=== PATIENT | female | born 1990 | race Caucasian/White ===

== ENCOUNTER 2023-04-19 13:26 | Emergency (ER) | payer OTHER, SELFPAY ==
[2023-04-19] VITALS (17 sets, daily range): BP systolic 113–177; BP diastolic 53–78; PULSE 107–126; RESP 14–21; TEMP 36.8–38.1; O2SAT 97–100; BMI 20.5
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
[2023-04-19 14:13] LABS: Add Manual Diff / Slide Review NO; Basophils Absolute Auto 0 /uL (0-100); Basophils Percent Auto 0.2 % (0-2); Eosinophils Absolute Auto 0 /uL (0-450); Hematocrit 37.1 % (36-46); Hemoglobin 12.5 g/dL (12.0-16.0); Lymphocytes Absolute Auto 1000 /uL (1100-4500); Lymphocytes Percent Auto 6.2 % (25-40); Mean Corpuscular HGB Conc 33.7 % (30-36); Mean Corpuscular Hemoglobin 31.8 PG (26-34); Mean Corpuscular Volume 94.2 fL (80-100); Monocytes Absolute Auto 1800 /uL (0-900); Monocytes Percent Auto 10.9 % (3-14); Neutrophils Absolute Auto 13500 /uL (1500-7000); Neutrophils Percent Auto 82.7 % (50-75); Platelet Count 284 X10^3/uL (150-400); Red Blood Cell Count 3.93 X10^6/uL (4.0-5.2); Red Cell Distribution Width 13.4 % (11.6-14.8); White Blood Cell Count 16.3 X10^3/uL (4.5-11.0)
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
[2023-04-19 14:15] LABS: INR 1.4 (0.9-1.3); Prothrombin Time 16.3 SECONDS (9.4-12.5)
[2023-04-19 14:17] LABS: PTT Partial Thromboplastin Tim 37 SECONDS (25.1-36.5)
[2023-04-19 14:18] LABS: Lactate (Lactic Acid) 1.3 mmol/L (0.7-2.1)
[2023-04-19 14:20] LABS: Alanine Aminotransferase 20 IU/L (<35); Albumin 3.5 g/dL (3.5-5.0); Albumin Globulin Ratio 1.1 (1.0-2.8); Alkaline Phosphatase 109 U/L (38-126); Aspartate Aminotransferase 28 IU/L (14-36); BUN Creatinine Ratio 19.6 (6-22); Bilirubin Total 0.8 mg/dL (0.2-1.3); Blood Urea Nitrogen 10 mg/dL (7-17); Calcium 8.3 mg/dL (8.4-10.2); Carbon Dioxide 26 mmol/L (22-32); Chloride 100 mmol/L (98-107); Estimated Glomerular Filt Rate > 60 mL/min (>60); Ethanol (ETOH) < 10 mg/dL; Globulin 3.3 g/dL (1.7-4.1); Glucose 115 mg/dL (70-100); HEMOLYSIS 41 (0-50); Potassium 3.4 mmol/L (3.4-5.1); Sodium 131 mmol/L (137-145); Total Protein 6.8 g/dL (6.3-8.2)
[2023-04-19 14:21] LABS: Lipase < 10 U/L (23-300)
--- NOTE | 2023-04-19 14:35 | PC.NURSE ---
Of note, Pt seen 04/[address] [facility] Saturday for left knee pain. Records requested.
[2023-04-19] MEDS: KETOROLAC 30 MG/ML VIAL 15 MG IV (14:58)
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
[2023-04-19] MEDS: SODIUM CHLORIDE 0.9% 1,000 ML 1000 ML IV (15:24)
[2023-04-19 15:58] LABS: Procalcitonin 0.68 ng/mL (<0.5)
[2023-04-19 16:15] LABS: UR Morphine/Opiate cutoff 300 Negative (Negative); Ur Creatinine Normal (Normal); Ur Specific Gravity Normal (Normal); Urine Amphetamines Negative (Negative); Urine Barbiturates Negative (Negative); Urine Benzodiazepines Negative (Negative); Urine Cocaine Negative (Negative); Urine MDMA Negative (Negative); Urine Methadone Negative (Negative); Urine Methamphetamines Positive (Negative); Urine Oxycodone Negative (Negative); Urine Phencyclidine Negative (Negative); Urine Tetrahydrocannabinol Negative (Negative); Urine Tricyclic Antidepressant Negative (Negative); Urine pH Normal (Normal)
[2023-04-19] MEDS: cefTRIAXone 1,000 MG in SODIUM CHLORIDE 0.9% 100 ML 200 MG IV (17:10)
[2023-04-19 17:14] LABS: Influenza A - CEPHEID Flu A NEGATIVE (NEGATIVE); Influenza B - CEPHEID Flu B NEGATIVE (NEGATIVE); Respiratory Syncytial Virus Negative (Negative)
[2023-04-19 17:17] LABS: COVID-19 CEPHEID 4-PLEX PCR Negative (Negative)
--- NOTE | 2023-04-19 17:23 | DI.CT.S_ITS ---
PROCEDURE: CT ABDOMEN PELVIS W CON INDICATIONS: fever TECHNIQUE: After the administration of IV contrast, axial sections were acquired from the lung bases to the pubic symphysis. Coronal and sagittal reformats were performed. For radiation dose reduction, the following was used: automated exposure control, adjustment of mA and/or kV according to patient size. COMPARISON: None. FINDINGS: Image quality: Good. Lung bases: Unremarkable. Heart: No significant findings. ABDOMEN: Liver: No solid mass. Gallbladder: No radiopaque gallstones or wall thickening. Biliary ducts: No biliary dilation. Pancreas: No ductal dilation. Spleen: Size is within normal limits. Adrenal Glands: No adrenal nodules. Kidneys and Ureters: No hydronephrosis. No solid mass. No complex renal cystic lesion which requires follow up. Stomach and Bowel: Stomach is within normal limits. There is fluid within the small bowel. No small bowel obstruction. Somewhat prominent stool in the distal colon. The appendix is not identified. Peritoneum: No abnormal intraperitoneal fluid. No free air. Ventral Wall: No hernia. Abdominal Nodes: No retroperitoneal or mesenteric adenopathy by size criteria. Vessels: Aorta and inferior vena cava are normal in size. PELVIS: Pelvic Organs: Anteverted uterus. Bladder: No stone. Pelvic Nodes: No enlarged lymph nodes. Miscellaneous: No inguinal hernias are seen. Bones: No suspicious osseous lesion. IMPRESSION: 1. Fluid within the small bowel. This could represent an enteritis. 2. No small bowel obstruction. No free fluid. 3. The appendix is not identified. 4. No fracture. Dictated by: Sarmad Krueger M.D. on 04/19/2023 at 19:06 Approved by: Sarmad Krueger M.D. on 04/19/2023 at 19:12
[2023-04-19 17:38] LABS: Urine N gonorrhoeae NOT DETECTED
[2023-04-19 17:39] LABS: Urine Chlamydia NOT DETECTED
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
[2023-04-19] MEDS: KETOROLAC 30 MG/ML VIAL IM (19:39)
== END 2023-04-19 19:52 | disposition home or self-care (01) ==
PROVIDERS: Emergency Provider Emergency Medicine
DX: S83.92XA Sprain of unspecified site of left knee, initial encounter (principal); J06.9 Acute upper respiratory infection, unspecified; R50.9 Fever, unspecified; R00.0 Tachycardia, unspecified; Z20.822 Contact with and (suspected) exposure to COVID-19; Y04.2XXA Assault by strike against or bumped into by another person, initial encounter
CPT/HCPCS: 0241U; 36415; 71045; 73552; 73562; 74177; 80053; 80305; 80320; 81003; 81025; 83605; 83690; 84145; 85025; 85610; 85730; 86850; 86900; 86901; 87040; 87491; 87591; 96361; 96365; 96372; 96375; 99284; 99285; J0696; J1885; Q9967

== ENCOUNTER → 2024-02-25 14:34 | Outpatient (CLI) | payer OTHER, SELFPAY ==
[2024-02-25 15:34] LABS: Add Manual Diff / Slide Review NO; Basophils Absolute Auto 0 /uL (0-100); Basophils Percent Auto 0.2 % (0-2); Eosinophils Absolute Auto 100 /uL (0-450); Hematocrit 37.3 % (36-46); Hemoglobin 12.7 g/dL (12.0-16.0); Lymphocytes Absolute Auto 1300 /uL (1100-4500); Lymphocytes Percent Auto 18.1 % (25-40); Mean Corpuscular HGB Conc 34.1 % (30-36); Mean Corpuscular Hemoglobin 33.4 PG (26-34); Monocytes Absolute Auto 500 /uL (0-900); Monocytes Percent Auto 7.3 % (3-14); Neutrophils Absolute Auto 5400 /uL (1500-7000); Neutrophils Percent Auto 73.4 % (50-75); Platelet Count 336 X10^3/uL (150-400); Red Blood Cell Count 3.81 X10^6/uL (4.0-5.2); White Blood Cell Count 7.4 X10^3/uL (4.5-11.0)
[2024-02-25 15:41] LABS: Natera Collection Specimen Collected
[2024-02-26 04:40] LABS: RPR Screen Non Reactive (Non Reactive)
[2024-02-26 08:36] LABS: Varicella IgG Antibody Reactive (Non Reactive)
[2024-02-26 16:11] LABS: Hepatitis B Surface Antigen NEGATIVE s/c (NEGATIVE); Rubella Antibody IgG 19.2 IU/mL (>15)
[2024-02-26 16:28] LABS: HIV 1 & 2 Ab/Ag 4th Gen Combo NEGATIVE (NEGATIVE); Hep C Virus Ab w/Reflex Quant REACTIVE s/c (NEGATIVE)
== END ==
LOC: LAB 14:35
PROVIDERS: Referring Provider Family Medicine; Visit Provider Family Medicine
DX: O09.299 Supervision of pregnancy with other poor reproductive or obstetric history, unspecified trimester (principal)
CPT/HCPCS: 36415; 80055; 86787; 86803; 86850; 86900; 86901; 87389; 87522

== ENCOUNTER → 2024-05-28 13:05 | Outpatient (CLI) | payer OTHER, SELFPAY ==
--- NOTE | 2024-05-28 13:06 | DI.US.S_ITS ---
PROCEDURE: US OB >= 14 WEEKS FETUS INDICATIONS: Anatomy Scan OUTSIDE/PRIOR DATING DATA: Last menstrual period (LMP): 11/12/2023 LMP-based estimated date of delivery (AINSLEY): 08/18/2024 The calculations are made using the clinical AINSLEY of 08/18/2024. TECHNIQUE: Real-time scanning was performed of the fetus, with image documentation and biometric measurements. Endovaginal scanning: Not performed. COMPARISON: None. FINDINGS: General: A single living intrauterine gestation is present. Presentation: Cephalic Placenta: Placental position is posterior, without previa. Amniotic fluid index: 15.6 cm, normal range is 5-24 cm. Single deepest vertical pocket is 4.3 cm. heart rate: 137 beats per minute. Maternal cervical canal: 3.5 cm long. Normal lower limit is 2.5 cm. biometrics: Biparietal diameter: 7.3 cm, 29 weeks 1 day Head circumference: 26.6 cm, 29 weeks 0 days Abdominal circumference: 23.8 cm, 28 weeks 1 day Femur length: 5.0 cm, 26 weeks 5 days Clinically estimated gestational age: 28 weeks 2 days Composite gestational age from present scan: 28 weeks 2 days Estimated weight and percentile: 1124 g, 20th percentile Anatomic survey: Neuro: Ventricles are non-dilated at less than 10 mm. Cisterna magna is normal at 3-11 mm. Cerebellum is normal in size and morphology. Nuchal skin fold: Not evaluated due to gestational age. Face: Nose and lips, facial profile are normal. Spine: No evidence for spina bifida. Heart: 4-chambered heart is present, with normal ventricular outflow tracts. Diaphragm: Diaphragm is intact. Stomach: Left-sided stomach is present. Kidneys: No hydronephrosis. Normal is less than 5 mm in 2nd trimester, less than 7 mm in 3rd trimester. Cord: 3-vessel cord has orthotopic insertion. Bladder: Normal in size. Extremities: All 4 extremities identified. IMPRESSION: 1. Single live intrauterine at 28 weeks 2 days gestational age. 2. size is concordant with clinical dates. 3. atomic survey is within normal limits for gestational age. Approved by: Holger Villalpando M.D. on 05/28/2024 at 18:06
== END ==
PROVIDERS: Referring Provider Family Medicine; Visit Provider Family Medicine
DX: O09.293 Supervision of pregnancy with other poor reproductive or obstetric history, third trimester (principal); Z3A.28 28 weeks gestation of pregnancy
CPT/HCPCS: 76811

== ENCOUNTER 2024-07-15 19:53 | Outpatient (CLI) | payer OTHER, SELFPAY ==
[2024-07-15] MEDS: NALOXONE 4 MG NASAL SPRAY NASAL (21:03)
== END 2024-07-15 21:17 | disposition home or self-care (01) ==
LOC: LABOR 20:17 → OB 07-16 17:06
PROVIDERS: Referring Provider Obstetrics & Gynecology; Visit Provider Obstetrics & Gynecology
DX: O36.8130 Decreased fetal movements, third trimester, not applicable or unspecified (principal); O99.323 Drug use complicating pregnancy, third trimester; F11.90 Opioid use, unspecified, uncomplicated; O99.333 Smoking (tobacco) complicating pregnancy, third trimester; F17.290 Nicotine dependence, other tobacco product, uncomplicated; Z3A.35 35 weeks gestation of pregnancy
CPT/HCPCS: 59025; G0378; A9270; G0379